=== PATIENT | female | born 1965 | race Caucasian/White ===

== ENCOUNTER 2020-12-12 13:10 | Emergency (ER) | payer BC ==
[~2020-12-12] VITALS: Ht 154.9 cm; Wt 65.8 kg
[2020-12-12 13:20] VITALS: BP 146/95
--- NOTE | 2020-12-12 13:20 | NUR ---
PT TO ED BED 07 C/O WORSENING COUGH AND TIGHTNESS SINCE WEDNESDAY PT IS CONCERNED BECAUSE SHE HAD AN EPIDURAL PROCEDURE THE DAY BEFORE ONSET OF SYMPTOMS AND STATES IT HAPPENED TO HER BEFORE POST EPIDURAL. PT IS [employer]LY[employer]. SATTING 97% ON RA. STABLE VITALS. AWAITING MD FRIAS.
--- NOTE | 2020-12-12 13:25 | NUR ---
DR MARADIAGA AT BEDSIDE FOR EVAL.
[2020-12-12] MEDS ORDERED: AZIT250T PO (13:32)
[2020-12-12] MEDS ORDERED: HYDR473S4 PO (13:32)
--- NOTE | 2020-12-12 13:38 | NUR ---
Patient discharged to home in stable condition. Written and verbal after care instructions given. Patient verbalizes understanding of instruction. Pt ambulatory with a steady gait
== END 2020-12-12 13:39 | disposition home or self-care (01) ==
LOC: ER 13:14
DX: J20.9 Acute bronchitis, unspecified (principal); G89.29 Other chronic pain; Z98.890 Other specified postprocedural states